=== PATIENT | female | born 1950 | race African-American/Black ===

== ENCOUNTER 2017-07-19 10:28 | Outpatient (CLI) | payer MEDICARE, OTHER ==
--- NOTE | 2017-07-19 14:36 | CT ---
CT CERVICAL SPINE WITHOUT CONTRAST: HISTORY: Pain with radiculopathy down the left arm. Several fingers go numb. COMPARISON: None. FINDINGS: There is moderate degenerative change of both temporomandibular joints with some flattening of the m andibular condyles and subchondral cyst formation. 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 A 1.4 cm hypodensity is present within the left lobe of the thyroid. Soft tissue stranding over the right supraclavicular soft tissues. There is a mildly prominent 8 mm in short axis right supraclav icular lymph node. The lung apices are clear. Mild degenerative disease of the atlantodental interval. There is ossification of the transverse li gament of the dens. There is a linear remnant of ossification center of the anterior arch of C1, no t likely a fracture. The levels are as follows: C2-C3: There is severe left-sided facet arthropathy. Moderate left-sided neural foraminal narrowin g. There is also severe left and moderate right-sided facet arthropathy. Large left-sided facet os teophytes are present. C3-C4: Moderate degenerative disk space height loss. Severe right-sided hypertrophic changes of th e facets. Moderate left-sided facet arthrosis. There is mild left and severe right-sided neural fo raminal narrowing, predominantly due to osteophyte formation. There is also mild uncinate process h ypertrophy. The posterior disk osteophyte complex narrows the spinal canal to approximately 9 mm. C4-C5: Mild uncinate process hypertrophy. Severe facet arthropathy. Hypertrophic changes. Modera te to severe right and moderate left-sided neural foraminal narrowing. C5-C6: Mild degenerative disk space height loss. Moderate uncinate process hypertrophy. Mild bila teral facet arthropathy. Moderate right and left neural foraminal narrowing. C6-C7: Posterior disk osteophyte complex narrows the spinal canal to approximately 9 mm. There is moderate left and mild right-sided facet arthropathy with hypertrophic changes. There is moderate l eft and mild right-sided neural foraminal narrowing. C7-T1: Moderate to severe left-sided facet arthrosis. Mild right-sided facet arthrosis. Moderate left and mild right-sided neural foraminal narrowing. IMPRESSION: 1. Multilevel spondylosis, as described above. MRI may be helpful. 2. Hypodensity, left lobe of thyroid, for which an emergent ultrasound is recommended. 3. Some soft tissue edema of the right neck. Recommend correlation for trauma. 4. Moderate to severe degenerative changes of both temporomandibular joints. POS: ANNETTA
--- NOTE | 2017-07-19 14:57 | CT ---
CT LEFT SHOULDER WITHOUT CONTRAST: Date: 07/19/17 HISTORY: Radiculopathy down left arm. Several fingers go numb. FINDINGS: Visualized ribs are unremarkable. Clavicle is normal. The visualized portion of the left lung parenchyma is normal. There is a subchondral cyst of the anterior inferior glenoid. Small osteophyte formation of the isabelle ral head is present. The previous small Hill-Sachs deformity posterolateral humeral head is seen bes t on series 401, image 35, and series 400, image 15. Small axillary lymph node are present. The muscle bulk appears normal. There is narrowing of the subacromial space, likely reflective of rotator cuff arthropathy. IMPRESSION: 1. Findings suggestive of Hill-Sacs deformity posterolateral humeral head with subchondral cyst of the anterior inferior glenoid suggests injury to the anterior inferior glenoid labrum, as well as ca rtilage loss. 2. Narrowing of the subacromial space likely reflective of rotator cuff arthropathy and likely full ness or supraspinatus tear, although poorly seen. 3. Nonspecific axillary lymph nodes may be reactive. POS: ANNETTA
== END 2017-07-19 10:29 | disposition home or self-care (01) ==
LOC: NAV CT 10:28
PROVIDERS: ATTEND Internal Medicine
DX: M25.512 Pain in left shoulder (principal); M47.22 Other spondylosis with radiculopathy, cervical region
CPT/HCPCS: 72125

== ENCOUNTER 2017-07-20 10:19 | Outpatient (CLI) | payer MEDICARE, OTHER ==
--- NOTE | 2017-07-20 13:03 | ULT ---
THYROID ULTRASOUND: HISTORY: Abnormal finding on CT scan of cervical spine of previous day. FINDINGS: The right lobe measures 3.5 cm in length and the left lobe measures 4.3 cm in length. The isthmus m easures 6 mm in thickness. There is a 2.3 x 1.4 x 1.3 cm taller than wide solid mass in the inferior aspect of the left lobe. This is a category 4, moderately suspicious lesion on TIRADS, and should be evaluated with FNA. The 9 mm complex mass in the left lobe of the thyroid gland is TIRADS category 2 and not considered suspicious. There is a 4 mm cystic lesion in the right mid lobe and an additional smaller 2 mm probably cystic n odule. IMPRESSION: TIRADS category 4 moderately suspicious 2.2 x 1.4 x 1.3 cm solid mass in the inferior pole of the le ft lobe of the thyroid gland. Fine needle aspiration is recommended. POS: ANNETTA
== END 2017-07-20 10:20 | disposition home or self-care (01) ==
LOC: NAV ULT 10:19
PROVIDERS: ATTEND Internal Medicine
DX: E04.1 Nontoxic single thyroid nodule (principal)
CPT/HCPCS: 76536

== ENCOUNTER 2018-04-11 10:41 | Outpatient (CLI) | payer MEDICARE, OTHER ==
--- NOTE | 2018-04-11 12:21 | RAD ---
TWO VIEWS RIGHT SHOULDER IN INTERNAL AND EXTERNAL ROTATION: DATE: 04/11/18. HISTORY: The patient picked up a case of water and felt a pop. Acute right shoulder pain. FINDINGS: The coracoclavicular and acromioclavicular distances are within normal limits. No fracture or disloc ation is appreciated on the provided images of the right shoulder. No other osseous abnormality is s een. IMPRESSION: No acute osseous abnormality of the right shoulder. POS: ANNETTA
== END 2018-04-11 10:42 | disposition home or self-care (01) ==
LOC: NAV RAD 10:41
PROVIDERS: ATTEND Internal Medicine
DX: M25.511 Pain in right shoulder (principal)

== ENCOUNTER 2020-05-09 19:41 | Inpatient (IN) | payer MEDICARE ==
[2020-05-09] MEDS: Amlodipine 5 MG TAB PO SCH (21:28)
[2020-05-09] MEDS: Aspirin 81 mg Enteric Coated Tablet PO SCH (21:28)
[2020-05-09] MEDS ORDERED: Furosemide 40 MG TAB PO SCH (21:45)
[2020-05-09] MEDS ORDERED: Metoprolol Tartrate 25 MG TAB PO SCH (21:45)
[2020-05-09] MEDS ORDERED: Timolol 0.5% Ophth Soln 5 ml Bottle EA EYE SCH (21:45)
[2020-05-09] MEDS: Calcium Carbonate 600 MG + Vit D TAB PO SCH (21:59)
[2020-05-09] MEDS: Brimonidine Tartrate 0.2% Ophth Soln 5 ml Bottle EA EYE SCH (21:59)
[2020-05-09] MEDS: HYDROcodone/Acetaminophen 10/325 mg Tablet PO PRN (22:23)
[2020-05-10] MEDS: HYDROcodone/Acetaminophen 10/325 mg Tablet PO PRN ×4 (03:41→19:04)
[2020-05-10 05:53] LABS: ALT (SGPT) 46 U/L (8-55); AST (SGOT) 32 U/L (5-34); Albumin 3.4 g/dL (3.4-4.8); Alkaline Phosphatase 102 U/L (40-110); Anion Gap 14 mmol/L (10-20); BUN (Urea Nitrogen) 11 mg/dL (9.8-20.1); Bilirubin, Total 0.5 mg/dL (0.2-1.2); Calc. Creatinine Clearance 111 mL/min (70-130); Calcium 9.8 mg/dL (7.8-10.44); Chloride 98 mmol/L (98-107); Estimated GFR-MDRD Greater than 90; Globulin 2.5 g/dL (2.4-3.5); Glucose 109 mg/dL (83-110); Potassium 4.3 mmol/L (3.5-5.1); Protein, Total 5.9 g/dL (6.0-8.3); Sodium 140 mmol/L (136-145)
[2020-05-10 05:55] LABS: Hemoglobin 9.1 g/dL (12.0-16.0); Mean Corpuscular Hemoglobin 28.7 pg (27.0-31.0); Mean Corpuscular Volume 92.5 fL (78.0-98.0); Platelet Count 139 thou/uL (130-400); Red Blood Cell (RBC) Count 3.15 mill/uL (4.20-5.40); White Blood Cell (WBC) Count 5.6 thou/uL (4.8-10.8)
[2020-05-10 05:56] LABS: MDiff Complete? YES
[2020-05-10 05:57] LABS: Carbon Dioxide 32 mmol/L (23-31)
[2020-05-10 06:21] LABS: Eosinophils 3 % (0-10); Lymphocytes 29 % (21-51); Monocytes 4 % (0-10); Neutrophil 64 % (42-75)
[2020-05-10 06:22] LABS: Mean Platelet Volume 11.2 fL (7.4-10.4)
[2020-05-10] MEDS: traMADol HCl 50 MG TAB PO PRN ×2 (08:27→16:51)
[2020-05-10] MEDS: Multivitamin W/ Minerals 1 TAB PO SCH (08:28)
[2020-05-10] MEDS: Aspirin 81 mg Enteric Coated Tablet PO SCH ×2 (08:28→20:51)
[2020-05-10] MEDS: Fish Oil 1,000 MG CAP PO SCH (08:28)
[2020-05-10] MEDS: Estradiol 1 MG TAB PO SCH (08:29)
[2020-05-10] MEDS: Potassium Chloride 20 MEQ TAB PO SCH (08:29)
[2020-05-10] MEDS: Folic Acid 1 MG TAB PO SCH (08:29)
[2020-05-10] MEDS: Famotidine 20 MG TAB PO SCH (08:29)
[2020-05-10] MEDS: Timolol 0.5% Ophth Soln 5 ml Bottle EA EYE SCH ×2 (08:29→20:49)
[2020-05-10] MEDS: Brimonidine Tartrate 0.2% Ophth Soln 5 ml Bottle EA EYE SCH ×2 (08:30→20:48)
[2020-05-10] MEDS: GLUCOSAMINE PO SCH (08:32)
[2020-05-10] MEDS: METHYLSULFONYLMETHANE PO SCH (08:32)
[2020-05-10] MEDS: Docusate 100 MG CAP PO SCH (19:04)
[2020-05-10] MEDS ORDERED: Polyethylene Glycol 3350 17 GM Packet PO SCH (19:30)
[2020-05-10] MEDS: Amlodipine 5 MG TAB PO SCH (20:50)
[2020-05-10] MEDS: Calcium Carbonate 600 MG + Vit D TAB PO SCH (20:51)
[2020-05-10] MEDS: Metoprolol Tartrate 25 MG TAB PO SCH (20:51)
[2020-05-10] MEDS: Furosemide 40 MG TAB PO SCH (20:51)
[2020-05-10] MEDS: Temazepam 15 MG CAP PO SCH (20:51)
[2020-05-10] MEDS: NIACIN PO SCH (20:52)
[2020-05-10] MEDS: Potassium Citrate 10 MEQ TAB PO SCH (20:52)
[2020-05-11] MEDS: HYDROcodone/Acetaminophen 10/325 mg Tablet PO PRN ×4 (04:22→20:50)
[2020-05-11] MEDS: traMADol HCl 50 MG TAB PO PRN ×2 (07:08→13:05)
[2020-05-11] MEDS: Acetaminophen 325 MG TAB PO PRN ×2 (07:09→13:04)
[2020-05-11] MEDS: Fish Oil 1,000 MG CAP PO SCH (08:19)
[2020-05-11] MEDS: Estradiol 1 MG TAB PO SCH (08:19)
[2020-05-11] MEDS: Famotidine 20 MG TAB PO SCH (08:19)
[2020-05-11] MEDS: Multivitamin W/ Minerals 1 TAB PO SCH (08:19)
[2020-05-11] MEDS: Folic Acid 1 MG TAB PO SCH (08:19)
[2020-05-11] MEDS: Docusate 100 MG CAP PO SCH ×2 (08:20→20:49)
[2020-05-11] MEDS: Polyethylene Glycol 3350 17 GM Packet PO SCH ×2 (08:20→08:26)
[2020-05-11] MEDS: Aspirin 81 mg Enteric Coated Tablet PO SCH ×2 (08:20→20:49)
[2020-05-11] MEDS: Brimonidine Tartrate 0.2% Ophth Soln 5 ml Bottle EA EYE SCH ×2 (08:20→20:49)
[2020-05-11] MEDS: Timolol 0.5% Ophth Soln 5 ml Bottle EA EYE SCH ×2 (08:20→20:48)
[2020-05-11] MEDS: Potassium Chloride 20 MEQ TAB PO SCH (08:26)
[2020-05-11] MEDS: METHYLSULFONYLMETHANE PO SCH (08:30)
[2020-05-11] MEDS: GLUCOSAMINE PO SCH (08:30)
[2020-05-11] MEDS ORDERED: Magnesium Citrate 300 ML BOT PO SCH (09:00)
[2020-05-11] MEDS: Ondansetron ODT 4 MG TAB PO PRN (12:31)
[2020-05-11] MEDS: Calcium Carbonate 600 MG + Vit D TAB PO SCH (20:49)
[2020-05-11] MEDS: Amlodipine 5 MG TAB PO SCH (20:49)
[2020-05-11] MEDS: Metoprolol Tartrate 25 MG TAB PO SCH (20:49)
[2020-05-11] MEDS: Temazepam 15 MG CAP PO SCH (20:49)
[2020-05-11] MEDS: Furosemide 40 MG TAB PO SCH (20:50)
[2020-05-11] MEDS: Potassium Citrate 10 MEQ TAB PO SCH (20:52)
[2020-05-11] MEDS: NIACIN PO SCH (20:52)
[2020-05-12] MEDS: HYDROcodone/Acetaminophen 10/325 mg Tablet PO PRN ×4 (01:40→20:34)
[2020-05-12] MEDS: Potassium Chloride 20 MEQ TAB PO SCH (08:14)
[2020-05-12] MEDS: Fish Oil 1,000 MG CAP PO SCH (08:14)
[2020-05-12] MEDS: Aspirin 81 mg Enteric Coated Tablet PO SCH ×2 (08:14→20:33)
[2020-05-12] MEDS: Multivitamin W/ Minerals 1 TAB PO SCH (08:15)
[2020-05-12] MEDS: Famotidine 20 MG TAB PO SCH (08:15)
[2020-05-12] MEDS: Docusate 100 MG CAP PO SCH ×2 (08:15→20:33)
[2020-05-12] MEDS: Estradiol 1 MG TAB PO SCH (08:15)
[2020-05-12] MEDS: Folic Acid 1 MG TAB PO SCH (08:15)
[2020-05-12] MEDS: Brimonidine Tartrate 0.2% Ophth Soln 5 ml Bottle EA EYE SCH ×2 (08:16→20:32)
[2020-05-12] MEDS: traMADol HCl 50 MG TAB PO PRN ×3 (08:21→22:45)
[2020-05-12] MEDS: Timolol 0.5% Ophth Soln 5 ml Bottle EA EYE SCH ×2 (08:29→20:32)
[2020-05-12] MEDS: Polyethylene Glycol 3350 17 GM Packet PO SCH (08:30)
[2020-05-12] MEDS: GLUCOSAMINE PO SCH (08:31)
[2020-05-12] MEDS: METHYLSULFONYLMETHANE PO SCH (08:31)
[2020-05-12] MEDS: Acetaminophen 325 MG TAB PO PRN ×2 (12:46→22:45)
[2020-05-12] MEDS: Ondansetron ODT 4 MG TAB PO PRN (14:53)
[2020-05-12] MEDS: Amlodipine 5 MG TAB PO SCH (20:33)
[2020-05-12] MEDS: Calcium Carbonate 600 MG + Vit D TAB PO SCH (20:33)
[2020-05-12] MEDS: Potassium Citrate 10 MEQ TAB PO SCH (20:33)
[2020-05-12] MEDS: Metoprolol Tartrate 25 MG TAB PO SCH (20:34)
[2020-05-12] MEDS: Furosemide 40 MG TAB PO SCH (20:34)
[2020-05-12] MEDS: Temazepam 15 MG CAP PO SCH (20:34)
[2020-05-12] MEDS: NIACIN PO SCH (20:38)
[2020-05-13] MEDS: HYDROcodone/Acetaminophen 10/325 mg Tablet PO PRN ×4 (00:42→19:45)
--- NOTE | 2020-05-13 05:29 | PRG ---
DATE OF SERVICE: 05/10/2020 SUBJECTIVE: The patient is still having significant left knee pain that is controlled with [place] and tramadol. She is now complaining of some nausea and is having persistent constipation. Therapy is not coming today to work with the patient. OBJECTIVE: VITAL SIGNS: Her temperature is 98.7, pulse 74, respirations 19, O2 sats 94% on room air, blood pressure 118/59. LUNGS: Clear. CARDIAC: Shows regular rhythm. ABDOMEN: Soft with some tenderness. EXTREMITIES: Show healing left knee with some swelling. No drainage. LABORATORY DATA: Showed white count 5600, hematocrit 29, hemoglobin 9.1, which is down from 11.4 preop. Sodium is 140, potassium 4.3, chloride 98, bicarb 32, BUN 11, creatinine 0.67, protein 5.9, albumin 3.4. ASSESSMENT: 1. Resolving left total knee with persistent pain control with [place] and tramadol. 2. Persistent constipation and we will continue with MiraLAX, but we will give magnesium citrate if no relief. 3. Paroxysmal supraventricular tachycardia. No evidence of recurrence. 4. Hypertension, controlled to goal. PLAN: 1. Continue PT, OT to start Tuesday. 2. Continue pain relief as needed. 3. Magnesium citrate to control constipation. Job ID: [id number]
--- NOTE | 2020-05-13 05:35 | PRG ---
DATE OF SERVICE: 05/11/2020 SUBJECTIVE: The patient is feeling better. Pain improving, but still having significant difficulty maintaining ADLs. Had good relief of her constipation with magnesium citrate. OBJECTIVE: VITAL SIGNS: Shows temperature 98.1, pulse 75, respirations 19, O2 sats 97% on room air, blood pressure is 139/65. LUNGS: Clear. CARDIAC: Shows regular rhythm. ABDOMEN: Soft and nontender. EXTREMITIES: Left knee shows persistent swelling with increased range of motion and persistent tenderness, controlled with medications. ASSESSMENT: 1. Resolving left total knee with improving range of motion. 2. Resolved constipation. 3. Hypertension, controlled to goal. 4. Paroxysmal supraventricular tachycardia with no evidence for recurrence. PLAN: 1. Start PT/OT again. Continue [place] and tramadol for pain. 2. Continue MiraLAX to prevent further constipation. Job ID: [id number]
--- NOTE | 2020-05-13 05:39 | PRG ---
DATE OF SERVICE: 05/12/2020 SUBJECTIVE: The patient feels well, feels that her knee has markedly improved with increased range of motion today. Working with therapy. OBJECTIVE: VITAL SIGNS: Shows her temperature is 99.3, pulse 79, respirations 18, O2 sats 93% on room air, and blood pressure 126/71. LUNGS: Clear. CARDIAC: Shows regular rhythm. ABDOMEN: Soft and nontender. EXTREMITIES: Left knee shows increased range of motion to 70 degrees flexion. No drainage. ASSESSMENT: 1. Resolving left total knee replacement. 2. Stable hypertension. 3. Paroxysmal supraventricular tachycardia with no evidence of recurrence. 4. Postop anemia and we will repeat labs in the a.m. to ensure no change. Job ID: [id number]
[2020-05-13 06:09] LABS: #Basophils 0.1 thou/uL (0.0-0.2); #Eosinphils 0.3 thou/uL (0.0-0.7); #Lymphocytes 1.3 thou/uL (1.20-3.40); #Monocytes 0.5 thou/uL (0.11-0.59); #Neutrophils 2.8 thou/uL (1.40-6.50); %Basophils 1.3 % (0.0-1.0); %Eosinophils 5.8 % (0.0-10.0); %Lymphocytes 26.9 % (21.0-51.0); Hemoglobin 9.1 g/dL (12.0-16.0); Mean Corpuscular HGB CONC 30.9 g/dL (32.0-36.0); Mean Corpuscular Hemoglobin 28.7 pg (27.0-31.0); Mean Corpuscular Volume 92.9 fL (78.0-98.0); Mean Platelet Volume 8.1 fL (7.4-10.4); Platelet Count 168 thou/uL (130-400); RBC Distribution Width 14.2 % (11.5-14.5); Red Blood Cell (RBC) Count 3.16 mill/uL (4.20-5.40)
[2020-05-13 06:19] LABS: ALT (SGPT) 45 U/L (8-55); AST (SGOT) 33 U/L (5-34); Albumin 3.5 g/dL (3.4-4.8); Alkaline Phosphatase 157 U/L (40-110); Anion Gap 15 mmol/L (10-20); BUN (Urea Nitrogen) 11 mg/dL (9.8-20.1); Bilirubin, Total 0.5 mg/dL (0.2-1.2); Calc. Creatinine Clearance 96 mL/min (70-130); Calcium 10.7 mg/dL (7.8-10.44); Carbon Dioxide 31 mmol/L (23-31); Chloride 98 mmol/L (98-107); Estimated GFR-MDRD 89; Globulin 3.1 g/dL (2.4-3.5); Glucose 100 mg/dL (83-110); Protein, Total 6.6 g/dL (6.0-8.3); Sodium 140 mmol/L (136-145)
--- NOTE | 2020-05-13 06:30 | HP ---
HISTORY OF PRESENT ILLNESS: The patient is a very pleasant 69-year-old female, who has recently undergone a left total knee replacement by Dr. Edmund Sinclair on May 05 with no intraoperative complications, but with persistent left knee pain making her unable to maintain ADLs and therefore requiring continued PT to [facility]. She has had no fever or chills. She has had no chest pain, shortness of breath. Had fair pain control because of malfunction of the pain pump, but now is on oral [place], doing fairly well. PAST MEDICAL HISTORY: Remarkable for paroxysmal supraventricular tachycardia ablated by Dr. Rian Alexandra with no recurrence medication, hypertension, osteoarthritis, glaucoma. She has a history also of hypertension. PAST SURGICAL HISTORY: Positive for total abdominal hysterectomy. The above-mentioned cardiac ablation 2016, a right total knee replacement November 2017 and a tonsillectomy. FAMILY MEDICAL HISTORY: Positive for glaucoma, arthritis. SOCIAL HISTORY: She is a , nonsmoker, nondrinker. MEDICATIONS: 1. Amlodipine 10 mg nightly. 2. The above-mentioned [place] 10/325 every 4 hours as needed. 3. Aspirin 81 mg twice daily. 4. Estradiol 2 mg daily. 5. Famotidine 20 mg daily. 6. Folic acid 1 mg daily. 7. Metoprolol 25 mg at night. 8. Furosemide 40 mg daily. 9. MiraLAX 17 g daily. 10. Tramadol 100 mg every 6 hours as needed. 11. Temazepam 15 mg as needed. REVIEW OF SYSTEMS: HEENT: She denies any headaches, dizziness, change in her vision or hearing, hoarseness or dysphagia. PULMONARY: She denies cough, sputum production, pneumonia, asthma, or tuberculosis. CARDIOVASCULAR: She has no history of palpitations, chest pain, shortness of breath. GASTROINTESTINAL: Denies nausea, vomiting. Does have constipation since surgery. No previous history. GENITOURINARY: Denies dysuria, hematuria, nocturia. MUSCULOSKELETAL: Has persistent pain in the left knee with inability to transfer and maintain ADLs without assistance. No swelling or stiffness in the left calf. NEUROLOGICAL: She denies localized numbness or weakness in arms or extremities. PHYSICAL EXAMINATION: GENERAL: The patient is an elderly female, in no acute distress. Oriented x3 and cooperative. VITAL SIGNS: Showed to have temperature 98.1, pulse 66, respiratory rate 16, O2 sats 93% on room air, blood pressure is . HEENT: Pupils are equal, round, and reactive to light and accommodation. Sclerae anicteric. Conjunctivae pale. Oral mucosa well hydrated. NECK: Supple. No nodes or masses. JVP elevated. LUNGS: Clear. CARDIAC: Showed regular rhythm. No gallops or murmurs. ABDOMEN: Soft and nontender with no masses or organomegaly. SKIN/EXTREMITIES: Show limb swelling. No drainage of the left anterior distribution of the knee, only able to flex; however, 40 degrees. NEUROLOGICAL: Intact. LABORATORY DATA: Shows white count of 7300, hematocrit 36, hemoglobin 11. ASSESSMENT: 1. Left total knee replacement with persistent pain, inability to maintain ADLs. We will admit to [facility]. Continue PT/OT. 2. Hypertension, controlled to goal. 3. History of supraventricular tachycardia with no recurrence status post ablation. 4. New problem of constipation with MiraLAX. Job ID: [id number]
[2020-05-13] MEDS: Polyethylene Glycol 3350 17 GM Packet PO SCH (09:15)
[2020-05-13] MEDS: Famotidine 20 MG TAB PO SCH (09:16)
[2020-05-13] MEDS: Fish Oil 1,000 MG CAP PO SCH (09:16)
[2020-05-13] MEDS: Potassium Chloride 20 MEQ TAB PO SCH (09:16)
[2020-05-13] MEDS: Multivitamin W/ Minerals 1 TAB PO SCH (09:16)
[2020-05-13] MEDS: Estradiol 1 MG TAB PO SCH (09:17)
[2020-05-13] MEDS: Folic Acid 1 MG TAB PO SCH (09:17)
[2020-05-13] MEDS: Brimonidine Tartrate 0.2% Ophth Soln 5 ml Bottle EA EYE SCH ×2 (09:17→20:37)
[2020-05-13] MEDS: Aspirin 81 mg Enteric Coated Tablet PO SCH ×2 (09:17→20:39)
[2020-05-13] MEDS: Docusate 100 MG CAP PO SCH ×2 (09:17→20:39)
[2020-05-13] MEDS: Timolol 0.5% Ophth Soln 5 ml Bottle EA EYE SCH ×2 (09:18→20:37)
[2020-05-13] MEDS: GLUCOSAMINE PO SCH (09:18)
[2020-05-13] MEDS: METHYLSULFONYLMETHANE PO SCH (09:18)
[2020-05-13] MEDS: Acetaminophen 325 MG TAB PO PRN ×3 (09:23→20:37)
[2020-05-13] MEDS: traMADol HCl 50 MG TAB PO PRN ×3 (09:24→20:38)
[2020-05-13] MEDS: Potassium Citrate 10 MEQ TAB PO SCH (20:39)
[2020-05-13] MEDS: Metoprolol Tartrate 25 MG TAB PO SCH (20:39)
[2020-05-13] MEDS: Furosemide 40 MG TAB PO SCH (20:39)
[2020-05-13] MEDS: Amlodipine 5 MG TAB PO SCH (20:39)
[2020-05-13] MEDS: Temazepam 15 MG CAP PO SCH (20:39)
[2020-05-13] MEDS: Calcium Carbonate 600 MG + Vit D TAB PO SCH (20:39)
[2020-05-13] MEDS: NIACIN PO SCH (20:40)
[2020-05-14] MEDS: HYDROcodone/Acetaminophen 10/325 mg Tablet PO PRN ×4 (03:15→20:45)
[2020-05-14] MEDS: Estradiol 1 MG TAB PO SCH (08:19)
[2020-05-14] MEDS: Multivitamin W/ Minerals 1 TAB PO SCH (08:19)
[2020-05-14] MEDS: Folic Acid 1 MG TAB PO SCH (08:19)
[2020-05-14] MEDS: Docusate 100 MG CAP PO SCH ×2 (08:20→20:45)
[2020-05-14] MEDS: Potassium Chloride 20 MEQ TAB PO SCH (08:20)
[2020-05-14] MEDS: Fish Oil 1,000 MG CAP PO SCH (08:21)
[2020-05-14] MEDS: Aspirin 81 mg Enteric Coated Tablet PO SCH ×2 (08:21→20:45)
[2020-05-14] MEDS: Famotidine 20 MG TAB PO SCH (08:21)
[2020-05-14] MEDS: Timolol 0.5% Ophth Soln 5 ml Bottle EA EYE SCH ×2 (08:21→20:44)
[2020-05-14] MEDS: Brimonidine Tartrate 0.2% Ophth Soln 5 ml Bottle EA EYE SCH ×2 (08:22→20:46)
[2020-05-14] MEDS: METHYLSULFONYLMETHANE PO SCH (08:23)
[2020-05-14] MEDS: GLUCOSAMINE PO SCH (08:23)
[2020-05-14] MEDS: Acetaminophen 325 MG TAB PO PRN ×2 (09:56→17:44)
[2020-05-14] MEDS: traMADol HCl 50 MG TAB PO PRN ×2 (09:56→17:44)
[2020-05-14] MEDS: Polyethylene Glycol 3350 17 GM Packet PO SCH (20:45)
[2020-05-14] MEDS: Potassium Citrate 10 MEQ TAB PO SCH (20:45)
[2020-05-14] MEDS: Metoprolol Tartrate 25 MG TAB PO SCH (20:45)
[2020-05-14] MEDS: Temazepam 15 MG CAP PO SCH (20:45)
[2020-05-14] MEDS: Calcium Carbonate 600 MG + Vit D TAB PO SCH (20:45)
[2020-05-14] MEDS: Furosemide 40 MG TAB PO SCH (20:45)
[2020-05-14] MEDS: NIACIN PO SCH (20:46)
[2020-05-14] MEDS: Amlodipine 5 MG TAB PO SCH (20:49)
[2020-05-15] MEDS: traMADol HCl 50 MG TAB PO PRN ×2 (05:15→12:39)
[2020-05-15] MEDS: Fish Oil 1,000 MG CAP PO SCH (08:14)
[2020-05-15] MEDS: Potassium Chloride 20 MEQ TAB PO SCH (08:15)
[2020-05-15] MEDS: Multivitamin W/ Minerals 1 TAB PO SCH (08:15)
[2020-05-15] MEDS: Estradiol 1 MG TAB PO SCH (08:15)
[2020-05-15] MEDS: Folic Acid 1 MG TAB PO SCH (08:15)
[2020-05-15] MEDS: Timolol 0.5% Ophth Soln 5 ml Bottle EA EYE SCH ×2 (08:15→21:07)
[2020-05-15] MEDS: Aspirin 81 mg Enteric Coated Tablet PO SCH ×2 (08:15→21:09)
[2020-05-15] MEDS: Famotidine 20 MG TAB PO SCH (08:15)
[2020-05-15] MEDS: Brimonidine Tartrate 0.2% Ophth Soln 5 ml Bottle EA EYE SCH ×2 (08:16→21:08)
[2020-05-15] MEDS: Docusate 100 MG CAP PO SCH ×2 (08:16→21:08)
[2020-05-15] MEDS: METHYLSULFONYLMETHANE PO SCH (08:17)
[2020-05-15] MEDS: GLUCOSAMINE PO SCH (08:17)
[2020-05-15] MEDS: HYDROcodone/Acetaminophen 10/325 mg Tablet PO PRN ×2 (08:31→18:20)
[2020-05-15] MEDS: Acetaminophen 325 MG TAB PO PRN (12:39)
[2020-05-15] MEDS: Polyethylene Glycol 3350 17 GM Packet PO SCH (21:07)
[2020-05-15] MEDS: Furosemide 40 MG TAB PO SCH (21:08)
[2020-05-15] MEDS: Temazepam 15 MG CAP PO SCH (21:08)
[2020-05-15] MEDS: Calcium Carbonate 600 MG + Vit D TAB PO SCH (21:08)
[2020-05-15] MEDS: Metoprolol Tartrate 25 MG TAB PO SCH (21:09)
[2020-05-15] MEDS: Amlodipine 5 MG TAB PO SCH (21:09)
[2020-05-15] MEDS: Potassium Citrate 10 MEQ TAB PO SCH (21:09)
[2020-05-15] MEDS: NIACIN PO SCH (21:09)
[2020-05-16] MEDS: HYDROcodone/Acetaminophen 10/325 mg Tablet PO PRN ×3 (00:38→21:07)
[2020-05-16] MEDS: traMADol HCl 50 MG TAB PO PRN ×2 (07:45→16:32)
[2020-05-16] MEDS: Famotidine 20 MG TAB PO SCH (07:47)
[2020-05-16] MEDS: Potassium Chloride 20 MEQ TAB PO SCH (07:47)
[2020-05-16] MEDS: Docusate 100 MG CAP PO SCH ×2 (07:47→21:07)
[2020-05-16] MEDS: Estradiol 1 MG TAB PO SCH (07:47)
[2020-05-16] MEDS: Fish Oil 1,000 MG CAP PO SCH (07:47)
[2020-05-16] MEDS: Aspirin 81 mg Enteric Coated Tablet PO SCH ×2 (07:48→21:07)
[2020-05-16] MEDS: Multivitamin W/ Minerals 1 TAB PO SCH (07:48)
[2020-05-16] MEDS: Brimonidine Tartrate 0.2% Ophth Soln 5 ml Bottle EA EYE SCH ×2 (07:48→21:06)
[2020-05-16] MEDS: Folic Acid 1 MG TAB PO SCH (07:48)
[2020-05-16] MEDS: Timolol 0.5% Ophth Soln 5 ml Bottle EA EYE SCH ×2 (07:49→21:06)
[2020-05-16] MEDS: METHYLSULFONYLMETHANE PO SCH (07:49)
[2020-05-16] MEDS: GLUCOSAMINE PO SCH (07:49)
[2020-05-16] MEDS: Acetaminophen 325 MG TAB PO PRN (16:33)
[2020-05-16] MEDS: Amlodipine 5 MG TAB PO SCH (21:07)
[2020-05-16] MEDS: Potassium Citrate 10 MEQ TAB PO SCH (21:07)
[2020-05-16] MEDS: Furosemide 40 MG TAB PO SCH (21:07)
[2020-05-16] MEDS: Metoprolol Tartrate 25 MG TAB PO SCH (21:07)
[2020-05-16] MEDS: Temazepam 15 MG CAP PO SCH (21:07)
[2020-05-16] MEDS: Calcium Carbonate 600 MG + Vit D TAB PO SCH (21:07)
[2020-05-16] MEDS: NIACIN PO SCH (21:09)
[2020-05-16] MEDS: Polyethylene Glycol 3350 17 GM Packet PO SCH (21:19)
[2020-05-17] MEDS: Brimonidine Tartrate 0.2% Ophth Soln 5 ml Bottle EA EYE SCH ×2 (08:27→21:11)
[2020-05-17] MEDS: Timolol 0.5% Ophth Soln 5 ml Bottle EA EYE SCH ×2 (08:27→21:10)
[2020-05-17] MEDS: Fish Oil 1,000 MG CAP PO SCH (08:28)
[2020-05-17] MEDS: Docusate 100 MG CAP PO SCH ×2 (08:28→21:11)
[2020-05-17] MEDS: Estradiol 1 MG TAB PO SCH (08:28)
[2020-05-17] MEDS: Famotidine 20 MG TAB PO SCH (08:28)
[2020-05-17] MEDS: Potassium Chloride 20 MEQ TAB PO SCH (08:28)
[2020-05-17] MEDS: Multivitamin W/ Minerals 1 TAB PO SCH (08:28)
[2020-05-17] MEDS: Folic Acid 1 MG TAB PO SCH (08:28)
[2020-05-17] MEDS: Aspirin 81 mg Enteric Coated Tablet PO SCH ×2 (08:28→21:11)
[2020-05-17] MEDS: GLUCOSAMINE PO SCH (08:29)
[2020-05-17] MEDS: METHYLSULFONYLMETHANE PO SCH (08:29)
[2020-05-17] MEDS: Acetaminophen 325 MG TAB PO PRN (15:47)
[2020-05-17] MEDS: traMADol HCl 50 MG TAB PO PRN (15:47)
--- NOTE | 2020-05-17 15:52 | PRG ---
DATE OF SERVICE: 05/17/2020 SUBJECTIVE: Ms. Stevens is resting comfortably. Her pain is controlled. She is independent now within her room. She is happy with her progress. Denies any questions or concerns. OBJECTIVE: VITAL SIGNS: She is afebrile. Heart rate 71, respirations 18, oxygen saturation 97% on room air, blood pressure 143/70. CARDIOVASCULAR SYSTEM: S1 and S2 plus. RESPIRATORY SYSTEM: Normal vesicular breath sounds. ABDOMEN: Soft, nontender. Bowel sounds heard in all quadrants. EXTREMITIES: Left knee incision with dressing. Trace edema. No neurovascular compromise. CENTRAL NERVOUS SYSTEM: Grossly nonfocal. IMPRESSION: 1. Osteoarthritis, status post left total knee replacement. 2. Hypertension. 3. Paroxysmal supraventricular tachycardia. 4. Osteoarthritis. 5. Glaucoma. PLAN: 1. Continue current medications. 2. Heart healthy diet. 3. Monitor heart rate and rhythm. 4. Orthopedic precautions and incision care. 5. DVT prophylaxis per Orthopedic recommendations. 6. Decubitus precaution. 7. Stress ulcer prophylaxis. 8. Physical therapy. Job ID: [id number]
[2020-05-17] MEDS: HYDROcodone/Acetaminophen 10/325 mg Tablet PO PRN (21:06)
[2020-05-17] MEDS: Polyethylene Glycol 3350 17 GM Packet PO SCH (21:10)
[2020-05-17] MEDS: Potassium Citrate 10 MEQ TAB PO SCH (21:11)
[2020-05-17] MEDS: Temazepam 15 MG CAP PO SCH (21:11)
[2020-05-17] MEDS: Amlodipine 5 MG TAB PO SCH (21:11)
[2020-05-17] MEDS: Metoprolol Tartrate 25 MG TAB PO SCH (21:11)
[2020-05-17] MEDS: Furosemide 40 MG TAB PO SCH (21:11)
[2020-05-17] MEDS: Calcium Carbonate 600 MG + Vit D TAB PO SCH (21:11)
[2020-05-17] MEDS: NIACIN PO SCH (21:12)
[2020-05-18] MEDS: Brimonidine Tartrate 0.2% Ophth Soln 5 ml Bottle EA EYE SCH ×2 (08:36→20:35)
[2020-05-18] MEDS: Estradiol 1 MG TAB PO SCH (08:36)
[2020-05-18] MEDS: Timolol 0.5% Ophth Soln 5 ml Bottle EA EYE SCH ×2 (08:36→20:35)
[2020-05-18] MEDS: Aspirin 81 mg Enteric Coated Tablet PO SCH ×2 (08:37→20:24)
[2020-05-18] MEDS: Folic Acid 1 MG TAB PO SCH (08:37)
[2020-05-18] MEDS: Famotidine 20 MG TAB PO SCH (08:37)
[2020-05-18] MEDS: Docusate 100 MG CAP PO SCH ×2 (08:37→20:23)
[2020-05-18] MEDS: Multivitamin W/ Minerals 1 TAB PO SCH (08:38)
[2020-05-18] MEDS: GLUCOSAMINE PO SCH (08:38)
[2020-05-18] MEDS: METHYLSULFONYLMETHANE PO SCH (08:38)
[2020-05-18] MEDS: Fish Oil 1,000 MG CAP PO SCH (08:38)
[2020-05-18] MEDS: Potassium Chloride 20 MEQ TAB PO SCH (08:38)
[2020-05-18] MEDS: traMADol HCl 50 MG TAB PO PRN ×2 (10:59→20:34)
[2020-05-18] MEDS: Acetaminophen 325 MG TAB PO PRN (11:01)
--- NOTE | 2020-05-18 14:41 | PRG ---
DATE OF SERVICE: 05/18/2020 SUBJECTIVE: Ms. Stevens is up in her chair. She is getting ready to go and ambulate assistance of nurses. She is doing well with a walker. Her left knee incision is healthy. Trace edema. Pain is controlled. OBJECTIVE: VITAL SIGNS: She is afebrile, heart rate 71, respirations 18, oxygen saturation 94% on room air, blood pressure 150/67. CARDIOVASCULAR: S1 and S2 plus. RESPIRATORY: Normal vesicular breath sounds. ABDOMEN: Soft and nontender. Bowel sounds heard in all quadrants. EXTREMITIES: Without cyanosis or clubbing. Trace edema to the left leg. Left knee incision with dressing. IMPRESSION: 1. Osteoarthritis, status post left total knee replacement. 2. Hypertension. 3. Paroxysmal supraventricular tachycardia. 4. Glaucoma. PLAN: 1. Continue current medications. 2. Heart healthy diet. 3. Orthopedic precautions and incision care. 4. DVT prophylaxis per Orthopedic recommendations. 5. Physical therapy. 6. Routine laboratory values. 7. Dr. Linnette tripp. Job ID: [id number]
[2020-05-18] MEDS: HYDROcodone/Acetaminophen 10/325 mg Tablet PO PRN (15:54)
[2020-05-18] MEDS: Metoprolol Tartrate 25 MG TAB PO SCH (20:23)
[2020-05-18] MEDS: Calcium Carbonate 600 MG + Vit D TAB PO SCH (20:23)
[2020-05-18] MEDS: Polyethylene Glycol 3350 17 GM Packet PO SCH (20:24)
[2020-05-18] MEDS: Potassium Citrate 10 MEQ TAB PO SCH (20:24)
[2020-05-18] MEDS: Amlodipine 5 MG TAB PO SCH (20:24)
[2020-05-18] MEDS: Temazepam 15 MG CAP PO SCH (20:24)
[2020-05-18] MEDS: NIACIN PO SCH (20:25)
[2020-05-18] MEDS: Furosemide 40 MG TAB PO SCH (20:25)
[2020-05-19] MEDS: HYDROcodone/Acetaminophen 10/325 mg Tablet PO PRN ×4 (04:23→20:06)
[2020-05-19] MEDS: Docusate 100 MG CAP PO SCH ×2 (08:39→20:07)
[2020-05-19] MEDS: Brimonidine Tartrate 0.2% Ophth Soln 5 ml Bottle EA EYE SCH ×2 (08:39→20:05)
[2020-05-19] MEDS: Aspirin 81 mg Enteric Coated Tablet PO SCH ×2 (08:39→20:08)
[2020-05-19] MEDS: Estradiol 1 MG TAB PO SCH (08:40)
[2020-05-19] MEDS: Famotidine 20 MG TAB PO SCH (08:40)
[2020-05-19] MEDS: Fish Oil 1,000 MG CAP PO SCH (08:40)
[2020-05-19] MEDS: Multivitamin W/ Minerals 1 TAB PO SCH (08:40)
[2020-05-19] MEDS: Folic Acid 1 MG TAB PO SCH (08:40)
[2020-05-19] MEDS: GLUCOSAMINE PO SCH (08:41)
[2020-05-19] MEDS: Potassium Chloride 20 MEQ TAB PO SCH (08:41)
[2020-05-19] MEDS: METHYLSULFONYLMETHANE PO SCH (08:41)
[2020-05-19] MEDS: Timolol 0.5% Ophth Soln 5 ml Bottle EA EYE SCH ×2 (08:47→20:05)
[2020-05-19] MEDS: Temazepam 15 MG CAP PO SCH (20:06)
[2020-05-19] MEDS: Polyethylene Glycol 3350 17 GM Packet PO SCH (20:07)
[2020-05-19] MEDS: Calcium Carbonate 600 MG + Vit D TAB PO SCH (20:07)
[2020-05-19] MEDS: Potassium Citrate 10 MEQ TAB PO SCH (20:07)
[2020-05-19] MEDS: Amlodipine 5 MG TAB PO SCH (20:08)
[2020-05-19] MEDS: Furosemide 40 MG TAB PO SCH (20:08)
[2020-05-19] MEDS: Metoprolol Tartrate 25 MG TAB PO SCH (20:08)
[2020-05-19] MEDS: NIACIN PO SCH (20:08)
[2020-05-20] MEDS: HYDROcodone/Acetaminophen 10/325 mg Tablet PO PRN ×4 (00:14→20:25)
[2020-05-20] MEDS: Aspirin 81 mg Enteric Coated Tablet PO SCH ×2 (08:19→20:24)
[2020-05-20] MEDS: Brimonidine Tartrate 0.2% Ophth Soln 5 ml Bottle EA EYE SCH ×2 (08:19→20:23)
[2020-05-20] MEDS: Estradiol 1 MG TAB PO SCH (08:20)
[2020-05-20] MEDS: Docusate 100 MG CAP PO SCH ×2 (08:20→20:25)
[2020-05-20] MEDS: Multivitamin W/ Minerals 1 TAB PO SCH (08:21)
[2020-05-20] MEDS: Famotidine 20 MG TAB PO SCH (08:21)
[2020-05-20] MEDS: Folic Acid 1 MG TAB PO SCH (08:21)
[2020-05-20] MEDS: Fish Oil 1,000 MG CAP PO SCH (08:21)
[2020-05-20] MEDS: Potassium Chloride 20 MEQ TAB PO SCH (08:22)
[2020-05-20] MEDS: METHYLSULFONYLMETHANE PO SCH (08:22)
[2020-05-20] MEDS: GLUCOSAMINE PO SCH (08:22)
[2020-05-20] MEDS: Timolol 0.5% Ophth Soln 5 ml Bottle EA EYE SCH ×2 (08:22→20:23)
[2020-05-20] MEDS: Calcium Carbonate 600 MG + Vit D TAB PO SCH (20:24)
[2020-05-20] MEDS: Polyethylene Glycol 3350 17 GM Packet PO SCH (20:24)
[2020-05-20] MEDS: Furosemide 40 MG TAB PO SCH (20:25)
[2020-05-20] MEDS: Amlodipine 5 MG TAB PO SCH (20:25)
[2020-05-20] MEDS: Metoprolol Tartrate 25 MG TAB PO SCH (20:25)
[2020-05-20] MEDS: Potassium Citrate 10 MEQ TAB PO SCH (20:25)
[2020-05-20] MEDS: Temazepam 15 MG CAP PO SCH (20:25)
[2020-05-20] MEDS: NIACIN PO SCH (20:33)
[2020-05-21] MEDS: HYDROcodone/Acetaminophen 10/325 mg Tablet PO PRN ×3 (00:39→21:15)
[2020-05-21] MEDS: Estradiol 1 MG TAB PO SCH (08:33)
[2020-05-21] MEDS: Famotidine 20 MG TAB PO SCH (08:33)
[2020-05-21] MEDS: Folic Acid 1 MG TAB PO SCH (08:33)
[2020-05-21] MEDS: Brimonidine Tartrate 0.2% Ophth Soln 5 ml Bottle EA EYE SCH ×2 (08:34→21:14)
[2020-05-21] MEDS: Docusate 100 MG CAP PO SCH ×2 (08:34→21:15)
[2020-05-21] MEDS: Fish Oil 1,000 MG CAP PO SCH (08:34)
[2020-05-21] MEDS: Aspirin 81 mg Enteric Coated Tablet PO SCH ×2 (08:34→21:15)
[2020-05-21] MEDS: Multivitamin W/ Minerals 1 TAB PO SCH (08:34)
[2020-05-21] MEDS: Potassium Chloride 20 MEQ TAB PO SCH (08:34)
[2020-05-21] MEDS: GLUCOSAMINE PO SCH (08:35)
[2020-05-21] MEDS: Timolol 0.5% Ophth Soln 5 ml Bottle EA EYE SCH ×2 (08:35→21:14)
[2020-05-21] MEDS: METHYLSULFONYLMETHANE PO SCH (08:35)
[2020-05-21] MEDS: traMADol HCl 50 MG TAB PO PRN ×2 (13:19→18:16)
[2020-05-21] MEDS: Acetaminophen 325 MG TAB PO PRN (13:20)
[2020-05-21] MEDS: NIACIN PO SCH (20:52)
[2020-05-21] MEDS: Polyethylene Glycol 3350 17 GM Packet PO SCH (21:14)
[2020-05-21] MEDS: Calcium Carbonate 600 MG + Vit D TAB PO SCH (21:15)
[2020-05-21] MEDS: Temazepam 15 MG CAP PO SCH (21:15)
[2020-05-21] MEDS: Amlodipine 5 MG TAB PO SCH (21:15)
[2020-05-21] MEDS: Potassium Citrate 10 MEQ TAB PO SCH (21:15)
[2020-05-21] MEDS: Metoprolol Tartrate 25 MG TAB PO SCH (21:16)
[2020-05-21] MEDS: Furosemide 40 MG TAB PO SCH (21:16)
[2020-05-22] MEDS: HYDROcodone/Acetaminophen 10/325 mg Tablet PO PRN ×3 (01:14→21:16)
--- NOTE | 2020-05-22 08:09 | PRG ---
DATE OF SERVICE: 05/13/2020 SUBJECTIVE: The patient is a 69-year-old female with a history of hypertension, paroxysmal supraventricular tachycardia, who has undergone a recent left total knee replacement, is having some difficulty with persistent pain in her knee and poor progression and therefore has been admitted to [facility] for continued PT. She did have some problems with her local block not working. At this time, she is feeling better with no pain in her groin and an increasing range of motion and decreasing pain in her knee. She is working well with therapy. No complications. OBJECTIVE: VITAL SIGNS: Showed to have temperature of 98, pulse 73, respiration 19, O2 sats 93% on room air, blood pressure is 139/67. EXTREMITIES: Left knee shows some swelling. No erythema or warmth. Range of motion is still somewhat limited to only 70 degrees flexion, but can extend to 170 degrees. LUNGS: Clear. CARDIAC: Shows regular rhythm. ABDOMEN: Soft, nontender. LABORATORY DATA: White count is 5000, hematocrit 29, hemoglobin 9. Sodium is 140, potassium 4.0, chloride 98, bicarb 31, BUN 11, creatinine 0.77, calcium 10.7, alkaline phosphatase 157. ASSESSMENT: 1. Resolving left total knee with persistent decreased range of motion and persistent pain, but improving. 2. Hypertension, controlled to goal. 3. Supraventricular tachycardia. No evidence for recurrence. PLAN: 1. Continue PT, OT. 2. Continue monitoring vital signs closely. 3. Continue tramadol as needed for pain. Job ID: [id number]
--- NOTE | 2020-05-22 08:15 | PRG ---
DATE OF SERVICE: 05/14/2020 SUBJECTIVE: The patient feels well, working with therapy, still with persistent stiffness and pain in her knee. Slept well through the night and is eating well. OBJECTIVE: VITAL SIGNS: Shows temperature is 98, pulse 67, respirations 18, O2 sats 98% on room air, blood pressure 121/67. EXTREMITIES: Left knee shows a healed incision with persistent swelling and stiffness, no warmth. LUNGS: Clear. CARDIAC: Shows regular rhythm. ASSESSMENT: 1. Resolving left total knee with persistent stiffness and tenderness. 2. Hypertension, controlled to goal. 3. Supraventricular tachycardia. No evidence for recurrence. PLAN: 1. Continue PT, OT. 2. Continue pain relief, tramadol as needed. 3. Continue to monitor vital signs closely. Job ID: [id number]
--- NOTE | 2020-05-22 08:19 | PRG ---
DATE OF SERVICE: 05/15/2020 SUBJECTIVE: The patient is recuperating well from a left total knee with persistent, but decreasing stiffness and pain. OBJECTIVE: VITAL SIGNS: Shows temperature is 97, pulse 71, respirations 18, O2 sats 96% on room air, blood pressure is up to 174/74 today and we will monitor. LUNGS: Clear. CARDIAC: Regular rhythm. EXTREMITIES: Left knee shows some swelling, but decreasing with decreasing erythema and tenderness. ASSESSMENT: 1. Resolving left total knee with good cooperation with PT and OT. 2. Stable hypertension. 3. No evidence of recurrent paroxysmal supraventricular tachycardia. PLAN: 1. Continue PT, OT. 2. Continue . 3. Continue stress ulcer prophylaxis. Job ID: [id number]
--- NOTE | 2020-05-22 08:22 | PRG ---
DATE OF SERVICE: 05/16/2020 SUBJECTIVE: The patient is fatigued today, but states that she did work hard yesterday and is improving with therapy. OBJECTIVE: VITAL SIGNS: Shows temperature is 99.1, pulse 71, respirations 20, O2 saturations 95% on room air, blood pressure 143/70. LUNGS: Clear. CARDIAC: Showed regular rhythm. ABDOMEN: Soft and nontender. EXTREMITIES: Left knee shows increased range of motion with flexion to 65 degrees and extension to 180. ASSESSMENT: 1. Resolving left total knee replacement with increased range of motion. 2. Stable hypertension. 3. No evidence for recurrent paroxysmal supraventricular tachycardia. PLAN: 1. Continue PT, OT. 2. Continue pain relief with tramadol. 3. Continue to monitor vital signs closely. Job ID: [id number]
--- NOTE | 2020-05-22 08:29 | PRG ---
DATE OF SERVICE: 05/19/2020 SUBJECTIVE: The patient rested over the weekend and now is ready for more therapy and feels like her knee is improving, but she is still not able to climb on to her steps and ambulate and as she lives alone, needs more therapy. OBJECTIVE: VITAL SIGNS: Shows temperature of 97.8, pulse 72, respirations 20, O2 sats 98% on room air, blood pressure is 175/74. LUNGS: Clear. CARDIAC: Shows regular rhythm. ABDOMEN: Soft and nontender. EXTREMITIES: Left knee shows decreased swelling, increased range of motion. No warmth, persistent mild tenderness controlled with tramadol. ASSESSMENT: 1. Resolving left total knee replacement. 2. Stable hypertension. 3. Paroxysmal supraventricular tachycardia, no evidence for recurrence. PLAN: 1. Continue PT/OT. 2. Continue pain relief with tramadol. 3. Continue to monitor vital signs closely. Job ID: [id number]
[2020-05-22] MEDS: Brimonidine Tartrate 0.2% Ophth Soln 5 ml Bottle EA EYE SCH ×2 (08:49→21:18)
[2020-05-22] MEDS: Timolol 0.5% Ophth Soln 5 ml Bottle EA EYE SCH ×2 (08:49→21:18)
[2020-05-22] MEDS: Folic Acid 1 MG TAB PO SCH (08:50)
[2020-05-22] MEDS: Docusate 100 MG CAP PO SCH ×2 (08:50→21:20)
[2020-05-22] MEDS: Fish Oil 1,000 MG CAP PO SCH (08:50)
[2020-05-22] MEDS: Potassium Chloride 20 MEQ TAB PO SCH (08:50)
[2020-05-22] MEDS: Famotidine 20 MG TAB PO SCH (08:50)
[2020-05-22] MEDS: Aspirin 81 mg Enteric Coated Tablet PO SCH ×2 (08:50→21:20)
[2020-05-22] MEDS: Estradiol 1 MG TAB PO SCH (08:50)
[2020-05-22] MEDS: Multivitamin W/ Minerals 1 TAB PO SCH (08:50)
[2020-05-22] MEDS: METHYLSULFONYLMETHANE PO SCH (08:52)
[2020-05-22] MEDS: GLUCOSAMINE PO SCH (08:52)
--- NOTE | 2020-05-22 09:05 | PRG ---
DATE OF SERVICE: 05/20/2020 SUBJECTIVE: The patient feels well. No complaints other than pain in her knee, which is improving. She is somewhat fatigued today, but did work hard yesterday. OBJECTIVE: VITAL SIGNS: Temperature is 98, pulse 74, respirations 18, O2 sats 96% on room air, blood pressure 160/71. LUNGS: Clear. CARDIAC: Regular rhythm. ABDOMEN: Soft, nontender. EXTREMITIES: Left knee shows decreasing swelling, tenderness, no warmth or erythema. ASSESSMENT: 1. Resolving left total knee replacement. 2. Stable hypertension. 3. No evidence of recurrent paroxysmal supraventricular tachycardia. PLAN: 1. Continue PT/OT. 2. Continue pain relief. 3. Continue to monitor vital signs closely. Job ID: [id number]
--- NOTE | 2020-05-22 09:08 | PRG ---
DATE OF SERVICE: 05/21/2020 SUBJECTIVE: The patient feels much better. Moving much better, pleased with her progress. Taking steps and climbing a few stairs with increased safeness and stability. OBJECTIVE: VITAL SIGNS: Shows temperature 98.2, pulse 73, respirations 18, O2 sats 96% on room air, blood pressure 133/62. LUNGS: Clear. CARDIAC: Regular rhythm. Extremities: Left knee shows decreased swelling. No erythema or warmth. ASSESSMENT: 1. Resolving left total knee replacement. 2. Stable hypertension. 3. No evidence of recurrent paroxysmal supraventricular tachycardia. PLAN: 1. Continue PT/OT. 2. Continue pain relief as needed. 3. Discuss discharge planning with the patient and therapy. Job ID: [id number]
[2020-05-22] MEDS: traMADol HCl 50 MG TAB PO PRN (16:19)
[2020-05-22] MEDS: Acetaminophen 325 MG TAB PO PRN (16:19)
[2020-05-22] MEDS: Polyethylene Glycol 3350 17 GM Packet PO SCH (21:17)
[2020-05-22] MEDS: Temazepam 15 MG CAP PO SCH (21:20)
[2020-05-22] MEDS: Potassium Citrate 10 MEQ TAB PO SCH (21:20)
[2020-05-22] MEDS: Furosemide 40 MG TAB PO SCH (21:20)
[2020-05-22] MEDS: NIACIN PO SCH (21:21)
[2020-05-22] MEDS: Metoprolol Tartrate 25 MG TAB PO SCH (21:21)
[2020-05-22] MEDS: Amlodipine 5 MG TAB PO SCH (21:21)
[2020-05-22] MEDS: Calcium Carbonate 600 MG + Vit D TAB PO SCH (21:21)
[2020-05-23] MEDS: HYDROcodone/Acetaminophen 10/325 mg Tablet PO PRN ×2 (03:31→21:11)
[2020-05-23] MEDS: Brimonidine Tartrate 0.2% Ophth Soln 5 ml Bottle EA EYE SCH ×2 (08:59→21:10)
[2020-05-23] MEDS: Timolol 0.5% Ophth Soln 5 ml Bottle EA EYE SCH ×2 (09:00→21:09)
[2020-05-23] MEDS: Docusate 100 MG CAP PO SCH ×2 (09:01→21:10)
[2020-05-23] MEDS: GLUCOSAMINE PO SCH (09:02)
[2020-05-23] MEDS: Fish Oil 1,000 MG CAP PO SCH (09:02)
[2020-05-23] MEDS: Estradiol 1 MG TAB PO SCH (09:02)
[2020-05-23] MEDS: Aspirin 81 mg Enteric Coated Tablet PO SCH ×2 (09:02→21:10)
[2020-05-23] MEDS: Potassium Chloride 20 MEQ TAB PO SCH (09:02)
[2020-05-23] MEDS: Multivitamin W/ Minerals 1 TAB PO SCH (09:02)
[2020-05-23] MEDS: METHYLSULFONYLMETHANE PO SCH (09:02)
[2020-05-23] MEDS: Folic Acid 1 MG TAB PO SCH (09:02)
[2020-05-23] MEDS: Famotidine 20 MG TAB PO SCH (09:02)
[2020-05-23] MEDS: traMADol HCl 50 MG TAB PO PRN (10:34)
[2020-05-23] MEDS: Acetaminophen 325 MG TAB PO PRN (10:35)
[2020-05-23] MEDS: Polyethylene Glycol 3350 17 GM Packet PO SCH (21:09)
[2020-05-23] MEDS: Amlodipine 5 MG TAB PO SCH (21:10)
[2020-05-23] MEDS: Furosemide 40 MG TAB PO SCH (21:10)
[2020-05-23] MEDS: Potassium Citrate 10 MEQ TAB PO SCH (21:10)
[2020-05-23] MEDS: Temazepam 15 MG CAP PO SCH (21:10)
[2020-05-23] MEDS: Calcium Carbonate 600 MG + Vit D TAB PO SCH (21:10)
[2020-05-23] MEDS: NIACIN PO SCH (21:28)
[2020-05-23] MEDS: Metoprolol Tartrate 25 MG TAB PO SCH (21:32)
[2020-05-24] MEDS: HYDROcodone/Acetaminophen 10/325 mg Tablet PO PRN ×2 (03:29→11:56)
[2020-05-24] MEDS: Aspirin 81 mg Enteric Coated Tablet PO SCH ×2 (08:46→20:25)
[2020-05-24] MEDS: Famotidine 20 MG TAB PO SCH (08:46)
[2020-05-24] MEDS: Potassium Chloride 20 MEQ TAB PO SCH (08:46)
[2020-05-24] MEDS: Folic Acid 1 MG TAB PO SCH (08:46)
[2020-05-24] MEDS: Estradiol 1 MG TAB PO SCH (08:46)
[2020-05-24] MEDS: Timolol 0.5% Ophth Soln 5 ml Bottle EA EYE SCH ×2 (08:47→20:25)
[2020-05-24] MEDS: Docusate 100 MG CAP PO SCH ×2 (08:47→20:26)
[2020-05-24] MEDS: Fish Oil 1,000 MG CAP PO SCH (08:47)
[2020-05-24] MEDS: Brimonidine Tartrate 0.2% Ophth Soln 5 ml Bottle EA EYE SCH ×2 (08:47→20:24)
[2020-05-24] MEDS: Multivitamin W/ Minerals 1 TAB PO SCH (08:47)
[2020-05-24] MEDS: GLUCOSAMINE PO SCH (08:48)
[2020-05-24] MEDS: METHYLSULFONYLMETHANE PO SCH (08:48)
--- NOTE | 2020-05-24 09:02 | PRG ---
DATE OF SERVICE: 05/24/2020 Ms. Stevens is a very pleasant 69-year-old black female, who had a total left knee done by Dr. Sinclair. Postoperatively, she had quite a bit of pain and was transferred here to [facility] for occupational therapy, physical therapy, and pain management. She has a prior history of hypertension, SVT, and is followed by Dr. Alexandra for those problems. SUBJECTIVE: The patient states she is doing very well and she states that Dr. Anglin said that she can go home tomorrow. She is actually doing very well. Her blood pressure was a little high this morning 164/74 and she states it is never usually that high. She will continue to follow and we will not adjust medications today. The patient states she is ready for discharge tomorrow. OBJECTIVE: Vital signs this morning reveal blood pressure last night 164/74, blood pressure this morning 134/61, pulse 63, respirations 18, O2 saturation 98% on room air and T-max 97.1. PHYSICAL EXAMINATION: This is a well-developed, well-nourished, very pleasant 69-year-old black female, in no apparent distress at this time. HEENT: Normocephalic and nontraumatic cranium. Pupils are equally round and reactive. Extraocular movements are intact. Nose and throat are dry and clear. NECK: Supple without masses, nodes, or bruits. CHEST: Clear to auscultation. No rales, rhonchi, or wheezes are noted. HEART: Reveals a regular rate and rhythm without murmurs, gallops, or rubs. ABDOMEN: Soft, nontender without organomegaly. Normal bowel sounds are noted. No rebound or guarding is noted. : Exam is deferred. EXTREMITIES: Reveal left knee with decreased swelling and no erythema or no warmth. The patient states she is walking well and is ready for discharge tomorrow. ASSESSMENT: 1. Hypertension, stable. 2. History of SVT, none recently. 3. Recent left total knee replacement by Dr. Sinclair, doing well. 4. Doing extremely well with physical therapy and occupational therapy. PLAN: 1. Continue pain medications as needed. 2. Discharge planning for discharge tomorrow. 3. Continue outpatient PT and OT. Job ID: [id number]
[2020-05-24] MEDS: Furosemide 40 MG TAB PO SCH (20:25)
[2020-05-24] MEDS: Amlodipine 5 MG TAB PO SCH (20:25)
[2020-05-24] MEDS: Polyethylene Glycol 3350 17 GM Packet PO SCH (20:25)
[2020-05-24] MEDS: Temazepam 15 MG CAP PO SCH (20:25)
[2020-05-24] MEDS: Calcium Carbonate 600 MG + Vit D TAB PO SCH (20:25)
[2020-05-24] MEDS: Metoprolol Tartrate 25 MG TAB PO SCH (20:26)
[2020-05-24] MEDS: traMADol HCl 50 MG TAB PO PRN (20:26)
[2020-05-24] MEDS: Potassium Citrate 10 MEQ TAB PO SCH (20:26)
[2020-05-24] MEDS: NIACIN PO SCH (20:34)
[2020-05-25 04:02] VITALS: BMI 30.2
[2020-05-25] MEDS: HYDROcodone/Acetaminophen 10/325 mg Tablet PO PRN (05:50)
[2020-05-25 08:02] VITALS: BP 132/60; TEMP 96.9
[2020-05-25] MEDS: Timolol 0.5% Ophth Soln 5 ml Bottle EA EYE SCH (08:24)
[2020-05-25] MEDS: Estradiol 1 MG TAB PO SCH (08:25)
[2020-05-25] MEDS: Aspirin 81 mg Enteric Coated Tablet PO SCH (08:25)
[2020-05-25] MEDS: Folic Acid 1 MG TAB PO SCH (08:25)
[2020-05-25] MEDS: Fish Oil 1,000 MG CAP PO SCH (08:25)
[2020-05-25] MEDS: Brimonidine Tartrate 0.2% Ophth Soln 5 ml Bottle EA EYE SCH (08:25)
[2020-05-25] MEDS: Famotidine 20 MG TAB PO SCH (08:26)
[2020-05-25] MEDS: Docusate 100 MG CAP PO SCH (08:26)
[2020-05-25] MEDS: Multivitamin W/ Minerals 1 TAB PO SCH (08:26)
[2020-05-25] MEDS: Potassium Chloride 20 MEQ TAB PO SCH (08:26)
[2020-05-25] MEDS: METHYLSULFONYLMETHANE PO SCH (08:26)
[2020-05-25] MEDS: GLUCOSAMINE PO SCH (08:26)
--- NOTE | 2020-05-25 09:58 | DIS ---
DATE OF ADMISSION: 05/09/2020 DATE OF DISCHARGE: 05/25/2020 HOSPITAL COURSE: Ms. Stevens is a very pleasant 69-year-old black female, who had a total left knee done by Dr. Sinclair. Postoperatively, she had pain, was transferred to [facility] for physical therapy, occupational therapy, pain management. She has actually done very well and has reached maximum medical benefit. She is ready for discharge today. The patient states she is ready to go home. She states she has an appointment with Dr. Sinclair on the and she is to see Dr. Anglin within the next 7 to 14 days. PHYSICAL EXAMINATION: VITAL SIGNS: Today reveal blood pressure 132/60, pulse 64 to 76, respirations 16, O2 saturation 96% to 97% on room air, T-max 96.9. GENERAL: This is a well-developed, well-nourished, very pleasant 69-year-old black female, in no apparent distress at this time. HEENT: Normocephalic and nontraumatic cranium. Pupils are equally round and reactive. Extraocular movements are intact. Nose and throat are slightly dry. NECK: Supple without masses, nodes, or bruits. CHEST: Clear to auscultation. No rales, rhonchi, wheezes, or cough is noted. HEART: Reveals a regular rate and rhythm without murmurs, gallops, or rubs. ABDOMEN: Soft, nontender without organomegaly. Normal bowel sounds are noted. No rebound or guarding is noted. : Deferred. EXTREMITIES: Left knee reveals decreased swelling. No redness or warmth or drainage. The patient is walking well, states she is ready to go home. ASSESSMENT: 1. Hypertension. 2. Status post recent total left knee replacement by Dr. Sinclair, doing well. 3. History of SVT, none recently. 4. Doing well with therapy, occupational therapy. 5. Ready for discharge. PLAN: 1. Discharge this morning. 2. Prescription for tramadol 1 up to b.i.d. for pain score of 4 to 6. 3. [place] 10/325, dispense 14, so she gets one p.o. up to b.i.d. for pain score of 7 to 10. 4. The patient is ready for discharge this morning. 5. The patient has appointment with Dr. Sinclair on the . 6. The patient should see Dr. Harsha Anglin for followup within the next 7 to 14 days. 7. Continue physical therapy per Dr. Anglin's directions. I spent more than 35 minutes in counseling with this patient and arranging her discharge. Job ID: [id number]
== END 2020-05-25 13:10 | disposition home health service (06) | DRG 561 ==
LOC: NAV ACUTE 19:41
PROVIDERS: ADMIT Internal Medicine; ATTEND Internal Medicine
DX: Z47.1 Aftercare following joint replacement surgery (principal); I10 Essential (primary) hypertension; K59.00 Constipation, unspecified; H40.9 Unspecified glaucoma; Z90.710 Acquired absence of both cervix and uterus
CPT/HCPCS: 80053; 85007; 85025; 85027; Q0162

== ENCOUNTER 2021-02-11 13:37 | Outpatient (CLI) | payer MEDICARE | END 2021-02-11 13:38 | disposition home or self-care (01) | LOC: NAV RAD 13:37 | PROVIDERS: ATTEND Internal Medicine | DX: M25.572 Pain in left ankle and joints of left foot (principal) ==

== ENCOUNTER 2023-06-16 11:09 | Outpatient (CLI) | payer MEDICARE, OTHER | END 2023-06-16 11:10 | disposition home or self-care (01) | LOC: NAV RAD 11:09 | PROVIDERS: ATTEND Family Medicine | DX: M25.551 Pain in right hip (principal); M16.11 Unilateral primary osteoarthritis, right hip ==

== ENCOUNTER 2023-09-16 11:36 | Outpatient (CLI) | payer OTHER | END 2023-09-16 11:37 | disposition home or self-care (01) | LOC: NAV RAD 11:36 | PROVIDERS: ATTEND Family Medicine | DX: S89.91XA Unspecified injury of right lower leg, initial encounter (principal) ==

== ENCOUNTER 2024-07-20 12:55 | Emergency (ER) | payer OTHER | END 2024-07-20 15:48 | disposition home or self-care (01) | LOC: NAV ERS 12:55 | DX: M76.62 Achilles tendinitis, left leg (principal); I11.0 Hypertensive heart disease with heart failure; I50.9 Heart failure, unspecified | CPT/HCPCS: 99283 ==